=== PATIENT | male | born 1980 | race Caucasian/White ===

== ENCOUNTER 2020-05-31 10:38 | Inpatient (IN) | payer OTHER ==
[2020-05-31] MEDS ORDERED: LORazepam 2 MG/ML INJ IV STA (10:52)
[2020-05-31] MEDS ORDERED: ZIPRASIDONE 20 MG VIAL IM STA (10:52)
--- NOTE | 2020-05-31 11:40 | ED ---
General Adult HPI - General Source: patient, police, EMS, RN notes reviewed, old records reviewed Mode of arrival: EMS Limitations: altered mental status <Jose Bolaños - Last Filed: 05/31/20 14:31> <Wagner Phipps - Last Filed: 05/31/20 16:36> - General Chief complaint: Altered Mental Status Stated complaint: Psychosis Time Seen by Provider: 05/31/20 10:40 - History of Present Illness Initial comments: This a 39-year-old male who is brought in by [facility] and they will be conditioning the patient. Patient was found on the side of the highway yelling into the air he states he got out of his car that was so beautifully started crying and talking to God. Patient was also found waving his shirt around at the side of the highway. When patient comes into the room he stated that he believed someone might be trying to run him off the road and upset him so much she decided to pullman clerk and look at the birds in the ray in the clouds. Patient denies drug use or alcohol use. Patient denies any physical complaints. Patient is looking around the room and identifying different objects in the room incorrectly. (Jose Bolaños) - Related Data Allergies Allergy/AdvReac Type Severity Reaction Status Date / Time No Known Allergies Allergy Verified 05/31/20 15:31 Review of Systems ROS Other: All systems not noted in ROS Statement are negative. <Jose Bolaños - Last Filed: 05/31/20 14:31> ROS Other: All systems not noted in ROS Statement are negative. <Wagner Phipps - Last Filed: 05/31/20 16:36> ROS Statement: Those systems with pertinent positive or pertinent negative responses have been documented in the HPI. Past Medical History Past Psychological History: Unable to Obtain Smoking Status: Current every day smoker Past Alcohol Use History: Unable to Obtain Past Drug Use History: Unable to Obtain <Jose Bolaños - Last Filed: 05/31/20 14:31> General Exam Limitations: altered mental status <Jose Bolaños - Last Filed: 05/31/20 14:31> - General Exam Comments Initial Comments: GENERAL: Patient is well-developed and well-nourished. Patient is nontoxic and well- hydrated and is in no acute distress. ENT: Neck is soft and supple. No significant lymphadenopathy is noted. Oropharynx is clear. Moist mucous membranes. Neck has full range of motion without eliciting any pain. EYES: The sclera were anicteric and conjunctiva were pink and moist. Extraocular movements were intact and pupils were equal round and reactive to light. Eyelids were unremarkable. PULMONARY: Unlabored respirations. Good breath sounds bilaterally. No audible rales rhonchi or wheezing was noted. CARDIOVASCULAR: There is a regular rate and rhythm without any murmurs gallops or rubs. ABDOMEN: Soft and nontender with normal bowel sounds. SKIN: Skin is clear with no lesions or rashes and otherwise unremarkable. NEUROLOGIC: Patient is alert and oriented x3. Cranial nerves II through XII are grossly intact. Motor and sensory are also intact. Normal speech, volume and content. Symmetrical smile. MUSCULOSKELETAL: Normal extremities with adequate strength and full range of motion. No lower extremity swelling or edema. No calf tenderness. LYMPHATICS: No significant lymphadenopathy is noted PSYCHIATRIC: Patient is delusional (Jose Bolaños) Course Vital Signs 05/31/20 05/31/20 05/31/20 11:33 12:33 13:00 Pulse Rate Respiratory 18 18 18 Rate Blood Pressure O2 Sat by Pulse Oximetry 05/31/20 05/31/20 05/31/20 14:00 15:00 16:00 Pulse Rate 82 82 Respiratory 18 18 18 Rate Blood Pressure 127/77 O2 Sat by Pulse 96 Oximetry Procedures - Restraint - Face to Face Restraint Occurrence 1 Patient's Immediate Situation: Endangers others' safety, Endangers staff safety Patient's Reaction to the Intervention: Uncooperative, Belligerent, Combative Patient's Medical & Behavioral Condition: Agitated, Bizarre behavior Need to Continue or Terminate Restraint or Seclusion: Continue Face to Face Eval of Restraint Date: 05/31/20 Face to Face Eval of Restraint Time: 11:20 <Jose Bolaños - Last Filed: 05/31/20 14:31> Medical Decision Making - Lab Data Result diagrams: 05/31/20 11:44 05/31/20 11:44 <Jose Bolaños - Last Filed: 05/31/20 14:31> - Lab Data Result diagrams: 05/31/20 11:44 05/31/20 11:44 <Wagner Phipps - Last Filed: 05/31/20 16:36> - Medical Decision Making Dr. Phipps will be taking over the care of this patient at 3 PM (Wilson rouse,Jose) Patient has been evaluated by EPS and felt to be acutely psychotic NOS will require transfer for psychiatric evaluation. Transfer currently in progress. (Wagner Phipps) - Lab Data Lab Results 05/31/20 05/31/20 05/31/20 Range/Units 11:44 11:44 11:44 WBC 6.4 (3.8-10.6) k/uL RBC 4.54 (4.30-5.90) m/uL Hgb 15.7 (13.0-17.5) gm/dL Hct 44.8 (39.0-53.0) % MCV 98.8 (80.0-100.0) fL MCH 34.5 (25.0-35.0) pg MCHC 34.9 (31.0-37.0) g/dL RDW 12.3 (11.5-15.5) % Plt Count 285 (150-450) k/uL MPV 7.5 Neutrophils % 56 % Lymphocytes % 30 % Monocytes % 9 % Eosinophils % 2 % Basophils % 1 % Neutrophils # 3.6 (1.3-7.7) k/uL Lymphocytes # 1.9 (1.0-4.8) k/uL Monocytes # 0.6 (0-1.0) k/uL Eosinophils # 0.1 (0-0.7) k/uL Basophils # 0.0 (0-0.2) k/uL Sodium 136 L (137-145) mmol/L Potassium 4.1 (3.5-5.1) mmol/L Chloride 104 (98-107) mmol/L Carbon Dioxide 22 (22-30) mmol/L Anion Gap 10 mmol/L BUN 11 (9-20) mg/dL Creatinine 0.84 (0.66-1.25) mg/dL Est GFR (CKD-EPI)AfAm >90 (>60 ml/min/1.73 sqM) Est GFR (CKD-EPI)NonAf >90 (>60 ml/min/1.73 sqM) Glucose 96 (74-99) mg/dL Calcium 9.1 (8.4-10.2) mg/dL Magnesium 2.1 (1.6-2.3) mg/dL Total Bilirubin 0.8 (0.2-1.3) mg/dL AST 31 (17-59) U/L ALT 26 (4-49) U/L Alkaline Phosphatase 85 (38-126) U/L Total Protein 7.6 (6.3-8.2) g/dL Albumin 4.5 (3.5-5.0) g/dL Salicylates <1.0 mg/dL Urine Opiates Screen (NotDetected) Ur Oxycodone Screen (NotDetected) Urine Methadone Screen (NotDetected) Ur Propoxyphene Screen (NotDetected) Acetaminophen <10.0 ug/mL Ur Barbiturates Screen (NotDetected) U Tricyclic Antidepress (NotDetected) Ur Phencyclidine Scrn (NotDetected) Ur Amphetamines Screen (NotDetected) U Methamphetamines Scrn (NotDetected) U Benzodiazepines Scrn (NotDetected) Urine Cocaine Screen (NotDetected) U Marijuana (THC) Screen (NotDetected) Serum Alcohol <10 mg/dL Coronavirus (PCR) Not Detected (Not Detectd) 05/31/20 Range/Units 14:03 WBC (3.8-10.6) k/uL RBC (4.30-5.90) m/uL Hgb (13.0-17.5) gm/dL Hct (39.0-53.0) % MCV (80.0-100.0) fL MCH (25.0-35.0) pg MCHC (31.0-37.0) g/dL RDW (11.5-15.5) % Plt Count (150-450) k/uL MPV Neutrophils % % Lymphocytes % % Monocytes % % Eosinophils % % Basophils % % Neutrophils # (1.3-7.7) k/uL Lymphocytes # (1.0-4.8) k/uL Monocytes # (0-1.0) k/uL Eosinophils # (0-0.7) k/uL Basophils # (0-0.2) k/uL Sodium (137-145) mmol/L Potassium (3.5-5.1) mmol/L Chloride (98-107) mmol/L Carbon Dioxide (22-30) mmol/L Anion Gap mmol/L BUN (9-20) mg/dL Creatinine (0.66-1.25) mg/dL Est GFR (CKD-EPI)AfAm (>60 ml/min/1.73 sqM) Est GFR (CKD-EPI)NonAf (>60 ml/min/1.73 sqM) Glucose (74-99) mg/dL Calcium (8.4-10.2) mg/dL Magnesium (1.6-2.3) mg/dL Total Bilirubin (0.2-1.3) mg/dL AST (17-59) U/L ALT (4-49) U/L Alkaline Phosphatase (38-126) U/L Total Protein (6.3-8.2) g/dL Albumin (3.5-5.0) g/dL Salicylates mg/dL Urine Opiates Screen Not Detected (NotDetected) Ur Oxycodone Screen Not Detected (NotDetected) Urine Methadone Screen Not Detected (NotDetected) Ur Propoxyphene Screen Not Detected (NotDetected) Acetaminophen ug/mL Ur Barbiturates Screen Not Detected (NotDetected) U Tricyclic Antidepress Not Detected (NotDetected) Ur Phencyclidine Scrn Not Detected (NotDetected) Ur Amphetamines Screen Not Detected (NotDetected) U Methamphetamines Scrn Not Detected (NotDetected) U Benzodiazepines Scrn Not Detected (NotDetected) Urine Cocaine Screen Not Detected (NotDetected) U Marijuana (THC) Screen Not Detected (NotDetected) Serum Alcohol mg/dL Coronavirus (PCR) (Not Detectd) Disposition <Jose Bolaños - Last Filed: 05/31/20 14:31> Is patient prescribed a controlled substance at d/c from ED?: No - Out of Hospital Transfer - Req. Specs Out of Hospital Transfer - Requested Specifics: Psychiatric Non-ICU <Wagner Phipps - Last Filed: 05/31/20 16:36> Clinical Impression: Acute psychosis Disposition: OTHER INSTITUTION NOT DEFINED Condition: Stable Referrals: None,Stated [Primary Care Provider] - 1-2 days
[2020-05-31 12:16] LABS: Basophils % (A) 1 %; Eosinophils # (A) 0.1 k/uL (0-0.7); Eosinophils % (A) 2 %; HCT 44.8 % (39.0-53.0); HGB 15.7 gm/dL (13.0-17.5); Lymphocytes # (A) 1.9 k/uL (1.0-4.8); Lymphocytes % (A) 30 %; MCH 34.5 pg (25.0-35.0); MCHC 34.9 g/dL (31.0-37.0); MCV 98.8 fL (80.0-100.0); Mean Platelet Volume 7.5; Monocytes # (A) 0.6 k/uL (0-1.0); Monocytes % (A) 9 %; Neutrophils # (A) 3.6 k/uL (1.3-7.7); Neutrophils % (A) 56 %; Platelet Count 285 k/uL (150-450); RBC 4.54 m/uL (4.30-5.90); RDW 12.3 % (11.5-15.5); WBC 6.4 k/uL (3.8-10.6)
[2020-05-31 12:19] LABS: ALT 26 U/L (4-49); AST 31 U/L (17-59); Acetaminophen <10.0 ug/mL; African American GFR (CKD) >90 (>60 ml/min/1.73 sqM); Albumin 4.5 g/dL (3.5-5.0); Alcohol <10 mg/dL; Alkaline Phosphatase 85 U/L (38-126); Anion Gap 10 mmol/L; Blood Urea Nitrogen 11 mg/dL (9-20); Calcium 9.1 mg/dL (8.4-10.2); Carbon Dioxide 22 mmol/L (22-30); Chloride 104 mmol/L (98-107); Glucose 96 mg/dL (74-99); Magnesium 2.1 mg/dL (1.6-2.3); Non-African American GFR(CKD) >90 (>60 ml/min/1.73 sqM); Potassium 4.1 mmol/L (3.5-5.1); Salicylate <1.0 mg/dL; Sodium 136 mmol/L (137-145); Total Bilirubin 0.8 mg/dL (0.2-1.3); Total Protein 7.6 g/dL (6.3-8.2)
--- NOTE | 2020-05-31 13:59 | CT ---
EXAMINATION TYPE: CT brain wo con DATE OF EXAM: 05/31/2020 COMPARISON: None INDICATION: Altered mental status DLP: 1096.4 mGycm, Automated exposure control for dose reduction was used. CONTRAST: None CT of the brain is performed utilizing 3 mm thick sections through the posterior fossa and 3 mm thick sections through the remaining calvarium. Study is performed within 24 hours of arrival to the hosp ital. No abnormal hyperdensity is present to suggest an acute intracranial hemorrhage. No mass lesion is evident. No acute infarcts are evident. Ventricles and sulci are appropriate for the patient age. There is a retention cyst within the anterior left maxillary sinus. Minimal post thickening posterior ethmoid air cells. Remaining paranasal sinuses are clear. Mastoid air cells are clear. IMPRESSIONS: 1. No acute intracranial process.
[2020-05-31 14:37] LABS: Amphetamine Screen,Urine Not Detected (NotDetected); Barbiturate Screen,Urine Not Detected (NotDetected); Benzodiazepines Screen,Urine Not Detected (NotDetected); Cocaine Screen,Urine Not Detected (NotDetected); Methadone Screen, Urine Not Detected (NotDetected); Opiate Screen,Urine Not Detected (NotDetected); Oxycodone Screen, Urine Not Detected (NotDetected); Phencyclidine Screen,Urine Not Detected (NotDetected); Tricyclic Antidepressant,Urine Not Detected (NotDetected); Urn Cannabinoid Scrn Not Detected (NotDetected)
[2020-05-31] MEDS ORDERED: LORazepam 2 MG/ML INJ IM STA (16:29)
[2020-06-01] MEDS ORDERED: MAGNESIUM HYDROXIDE 2,400 MG/10 ML CUP PO PRN (15:19)
[2020-06-01] MEDS ORDERED: ACETAMINOPHEN TAB 325 MG TAB PO PRN (15:19)
[2020-06-01] MEDS ORDERED: MAG HYDROX/AL HYDROX/SIMETH 30 ML CUP PO PRN (15:19)
[2020-06-01] MEDS ORDERED: LORazepam 1 MG TAB PO PRN (15:19)
[2020-06-01] MEDS ORDERED: LORazepam 2 MG/ML INJ IM PRN (15:22)
[2020-06-01] MEDS ORDERED: HALOPERIDOL LACTATE 5 MG/ML 1 ML VIAL IM PRN (15:23)
[2020-06-01] MEDS ORDERED: haloperidoL 5 MG TAB PO PRN (15:24)
--- NOTE | 2020-06-01 22:42 | P.CONS ---
History of Present Illness - Reason for Consult Consult date: 06/01/20 - History of Present Illness She is a 39-year-old male with no known PMH who was brought into the emergency room under police custody due to erratic behavior. The patient was reportedly outside of his car on the freeway taking his clothes off and acting bizarrely. The patient was noted to be psychotic in the emergency room and was thereby admitted to the mental health unit where he was seen and evaluated. He reported that he wants to go home and that he is "totally fine". He did note that he had gotten out of his car because he was stressed about the high-speed of all the other cars and was looking at the birds and the clouds to help him calm down. He denied any physical complaints. Reported no history of past medical conditions and that he does not take any medications at home. Denied chest pain, shortness of breath or fever, chills, nausea, vomiting, abdominal pain. Reports smoking half pack of cigarettes per day for the past several years. Denied drug use. Review of Systems Pertinent positives and negatives as discussed in HPI, a complete review of systems was performed and all other systems are negative. Past Medical History Past Psychological History: Unable to Obtain Smoking Status: Current every day smoker Past Alcohol Use History: Unable to Obtain Past Drug Use History: Unable to Obtain Medications and Allergies Home Medications Medication Instructions Recorded Confirmed Type Unable To Assess [Unable to Assess] 05/31/20 05/31/20 History Allergies Allergy/AdvReac Type Severity Reaction Status Date / Time No Known Allergies Allergy Verified 05/31/20 15:31 Physical Exam Vitals: Vital Signs Temp Pulse Pulse Resp BP BP Pulse Ox 06/01/20 17:53 96.5 F L 06/01/20 07:58 97.3 F L 73 18 120/73 97 06/01/20 00:51 98.0 F 68 16 117/73 94 L Intake and Output 06/01/20 06/01/20 06/01/20 06:59 14:59 22:59 Other: Weight 97.069 kg General: non toxic, no distress, appears at stated age, overweight Derm: no unusual rashes/lesions no unusual ecchymoses, warm, dry Head: atraumatic, normocephalic, symmetric Eyes: EOMI, no lid lag, anicteric sclera, pupils equal round reactive to light ENT: Nose and ears atraumatic, no thrush, no pharyngeal erythema Neck: No thyromegaly, no cervical lymphadenopathy, trachea midline, supple Mouth: no lip lesion, mucus membranes moist Cardiovascular: S1S2 reg, no murmur, positive posterior tibial pulse bilateral, no edema, capillary refill less than 2 seconds Lungs: CTA bilateral, no rhonchi, no rales , no accessory muscle use Abdominal: soft, nontender to palpation, no guarding, no appreciable organomegaly, normal bowel sounds Ext: no gross muscle atrophy, muscle strength 5 out of 5 in all 4 extremities grossly, no contractures, Neuro: CN II-XI grossly intact, light touch intact all 4 extremities, finger to nose within normal limits, Psych: Alert, oriented, flat of ideas, somewhat disorganized thought process Results CBC & Chem 7: 05/31/20 11:44 05/31/20 11:44 Assessment and Plan Plan: Tobacco abuse -Advised on importance of cessation -Nicotine patch prn Psychosis -As per psychiatry Thank you for allowing us to participate in the care of this patient. We will follow peripherally. Do not hesitate to contact us with questions. Someone can be reached from the [facility] hospitalist group at all hours of the day at [phone].
[2020-06-02 07:55] LABS: Basophils % (A) 0 %; Eosinophils # (A) 0.2 k/uL (0-0.7); Eosinophils % (A) 3 %; HCT 44.9 % (39.0-53.0); HGB 15.6 gm/dL (13.0-17.5); Lymphocytes # (A) 1.7 k/uL (1.0-4.8); Lymphocytes % (A) 31 %; MCH 34.6 pg (25.0-35.0); MCHC 34.7 g/dL (31.0-37.0); MCV 99.8 fL (80.0-100.0); Mean Platelet Volume 7.2; Monocytes # (A) 0.5 k/uL (0-1.0); Monocytes % (A) 8 %; Neutrophils % (A) 55 %; Platelet Count 272 k/uL (150-450); RDW 12.2 % (11.5-15.5); WBC 5.5 k/uL (3.8-10.6)
[2020-06-02 08:14] LABS: ALT 27 U/L (4-49); AST 31 U/L (17-59); African American GFR (CKD) >90 (>60 ml/min/1.73 sqM); Albumin 4.1 g/dL (3.5-5.0); Alkaline Phosphatase 70 U/L (38-126); Anion Gap 5 mmol/L; Blood Urea Nitrogen 10 mg/dL (9-20); Calcium 8.9 mg/dL (8.4-10.2); Carbon Dioxide 29 mmol/L (22-30); Chloride 104 mmol/L (98-107); Cholesterol 128 mg/dL (<200); Glucose 89 mg/dL (74-99); HDL Cholesterol 23 mg/dL (40-60); LDL Cholesterol,Calculated 92 mg/dL (0-99); Non-African American GFR(CKD) >90 (>60 ml/min/1.73 sqM); Potassium 4.5 mmol/L (3.5-5.1); Sodium 138 mmol/L (137-145); Total Bilirubin 0.8 mg/dL (0.2-1.3); Total Protein 6.9 g/dL (6.3-8.2); Triglycerides 67 mg/dL (<150)
--- NOTE | 2020-06-02 11:02 | P.HP ---
Psychiatric H&P - . H&P Date: 06/02/20 History & Physical: IDENTIFYING DATA: The patient is a 34-year-old male brought to the Medical Center by emergency services. A state border police completed a Petition that read "standing on freeway without shirt yelling at car. He is suspicious of cable wires and cable carriers. He was yelling at flagpole at rest stop. Suppression spirits and ceiling. The birds are medicine service for stupid people. They're trying to duran my brain." HISTORY OF PRESENT ILLNESS: I reviewed the medical record and interviewed the patient. He was guarded and suspicious and provided little information. He perseverated on needed to be released. He complained that he has a court hearing on Wednesday at 8:30 AM and he plans to go to the [employer] to buy a new suit. He was guarded about the court hearing and only explain that it was due to and unfounded accusation by his . He suggested I speak with his disability attorney to obtain more information. In the ED he told the physician that he thought that someone was trying to run him off the road so he pulled off the highway and was looking at "birds in the ray in the clouds" when the state game warden arrived. The emergency physician noted that he was "looking around the room and identifying different objects in the room incorrectly.". The EPS nurse reports that he was verbally aggressive and physically aggressive. He thought everyone in the hospital were fake. 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 He had a comprehensive medical evaluation including a computed tomography scan. His urine drug screen was negative. His blood alcohol level was negative. Computed tomography scan of the brain showed no acute cranial process. He alleged that the state game warden who found him on misinterpreted the situation. He alleged that he had pulled off the side of the expressway because he became anxious in traffic. He had stepped off a safe distance from the highway and was regaining his composure. The state game warden would not listen to his explanation, called emergency services and brought him to the Medical Center "in handcuffs." He denied that he has problems or concerns. He perseverated on not being a threat to himself or others and being able to take care of himself. Much of this conversation was difficult to follow because he was overly circumstantial and pressured. He talked about living at an organization called "[employer]" where person called Camille Nuñez takes care of him. 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 He agreed to allow me to speak with his family and gave telephone numbers for his mother, Ashley Red ([phone]), and his stepfather Deshawn Red ([phone]). Number for his father was not correct and there is no answer to his mother's phone. I also left a message at the main number for her [employer] ([phone]) to speak with Camille Nuñez. He denied experiencing symptoms of a mental illness including persistent depression or anxiety. He denied experiencing auditory, visual or olfactory hallucinations, ideas reference, thought insertion, thought broadcasting or thought control. He denied experiencing periods of elevated mood or sustained irritability suggestive of amanda or hypomania. He denied use of drugs and described a social use of alcohol. PAST PSYCHIATRIC HISTORY: He was guarded about his psychiatric history. Eventually, he acknowledge that he been admitted to a psychiatric hospital in [place] and [facility]. He alleged the admissions were similarly the result of a misunderstanding. He met with a therapist in the past but was vague about when and for what reason. He admitted to taking psychotropic medications but did so on to appease the physician. PAST MEDICAL HISTORY: He denied a history of major medical problems. ALLERGIES: Known drug ALLERGIES SUBSTANCE USE HISTORY: He denied history of drug or alcohol use problems. FAMILY PSYCHIATRIC/SUBSTANCE USE HISTORY: He is unaware of family history of mental health or substance use problems. LEGAL HISTORY: He was guarded about his medical history but, as noted above, he insisted on being discharged so he could keep a court appointment on 06/03/2020 at 8:30 AM. SOCIAL HISTORY: He provides a disjointed social history. Apparently he was born in [place] and moved to [place] when he was a proximal be 8 years old. He talked about his mother having become involved in a serious motor vehicle accident in [place] where she was hospitalized for an extended period. He lived in [place] where he became involved with teen challenge. He has 1 brother. He graduated from high school and boasted about his academics success. He alleged that he started a [employer] while he was in high school. He's been twice. He has one children from his first marriage. His first is . He from his second . They have 3 children. He reported that he has custody of his oldest son and his and his 3 children are with their mother. He is currently living at [facility] MENTAL STATUS EXAM: He presented as a tall carefully groomed. 31-year-old male who was pleasant on approach. He made eye contact and appeared to attend to the interview. He had no distinguishing features or prominent physical abnormalities. He is an anxious facial expression. He is alert and oriented to person, place and time. He showed no abnormality of psychomotor activity he was not agitated, restless, impulsive or tremulous. His speech was spontaneous with increased rate and rhythm. He demonstrated pressured speech. He had no articulation difficulties. His affect was guarded and suspicious. He denied suicidal ideation, wishes homicidal ideation. He denied feeling hopeless, helpless or worthless. He obsessed over this hospitalization and the circumstances that this hospitalization and he ruminated about the need for discharge to keep his court appointment. He did not express clear ideas reference, paranoid ideation or delusions. His thinking was concrete and he demonstrated flight of ideas. He denied hallucinations did not appear to be responding to internal stimuli. Global impression of intellect is average. He has no insight or understanding of his illness or need for treatment. STRENGTHS: Stable housing, stable employment, social supports WEAKNESSES: Legal problems, recent separation, mental illness IMPRESSION: Is 39-year-old male brought by the state police to the [facility]. The state game warden completed a Petition describing bizarre and psychotic behavior. He provided a disjointed history the circumstances of what this hospitalization. He was guarded about his past history. He was markedly circumstantial and demonstrated pressured speech. He should be treated inpatient basis with combination of psychopharmacology and multimodal therapy. PRINCIPLE DIAGNOSIS: Unspecified mood disorder. Rule out bipolar disorder most recent episode manic, rule out schizoaffective disorder RECOMMENDATION: Admitted to the psychiatric unit. Safety precautions. Co mpleted the second clinical certificate and proceeded with involuntary hospitalization. Consult medicine for initial physical exam and medical history. buffing line set up worker completed initial psychosocial assessment coordinate discharge and aftercare. Obtain clinical information from friends or family. Haldol and/or Ativan when necessary for agitation or aggression. Discuss treatment with a mood stabilizer such as Depakote, second-generation antipsychotic or lithium. Encourage participation in therapeutic groups and activities. Evaluate clinical status response to treatment daily basis. Allergies Allergy/AdvReac Type Severity Reaction Status Date / Time No Known Allergies Allergy Verified 05/31/20 15:31 Vital Signs Temp 97.7 F 06/02/20 06:50 Pulse 102 H 06/02/20 06:50 Resp 16 06/02/20 06:50 BP 99/79 06/02/20 06:50 Pulse Ox 97 06/01/20 07:58 Intake & Output 06/01/20 06/02/20 06/02/20 18:59 06:59 18:59 Weight 97.069 kg Laboratory Last Values WBC 5.5 k/uL (3.8-10.6) 06/02/20 07:36 RBC 4.50 m/uL (4.30-5.90) 06/02/20 07:36 Hgb 15.6 gm/dL (13.0-17.5) 06/02/20 07:36 Hct 44.9 % (39.0-53.0) 06/02/20 07:36 MCV 99.8 fL (80.0-100.0) 06/02/20 07:36 MCH 34.6 pg (25.0-35.0) 06/02/20 07:36 MCHC 34.7 g/dL (31.0-37.0) 06/02/20 07:36 RDW 12.2 % (11.5-15.5) 06/02/20 07:36 Plt Count 272 k/uL (150-450) 06/02/20 07:36 MPV 7.2 06/02/20 07:36 Neutrophils % 55 % 06/02/20 07:36 Lymphocytes % 31 % 06/02/20 07:36 Monocytes % 8 % 06/02/20 07:36 Eosinophils % 3 % 06/02/20 07:36 Basophils % 0 % 06/02/20 07:36 Neutrophils # 3.0 k/uL (1.3-7.7) 06/02/20 07:36 Lymphocytes # 1.7 k/uL (1.0-4.8) 06/02/20 07:36 Monocytes # 0.5 k/uL (0-1.0) 06/02/20 07:36 Eosinophils # 0.2 k/uL (0-0.7) 06/02/20 07:36 Basophils # 0.0 k/uL (0-0.2) 06/02/20 07:36 Sodium 138 mmol/L (137-145) 06/02/20 07:36 Potassium 4.5 mmol/L (3.5-5.1) 06/02/20 07:36 Chloride 104 mmol/L (98-107) 06/02/20 07:36 Carbon Dioxide 29 mmol/L (22-30) 06/02/20 07:36 Anion Gap 5 mmol/L 06/02/20 07:36 BUN 10 mg/dL (9-20) 06/02/20 07:36 Creatinine 0.72 mg/dL (0.66-1.25) 06/02/20 07:36 Est GFR (CKD-EPI)AfAm >90 (>60 ml/min/1.73 sqM) 06/02/20 07:36 Est GFR (CKD-EPI)NonAf >90 (>60 ml/min/1.73 sqM) 06/02/20 07:36 Glucose 89 mg/dL (74-99) 06/02/20 07:36 Calcium 8.9 mg/dL (8.4-10.2) 06/02/20 07:36 Magnesium 2.1 mg/dL (1.6-2.3) 05/31/20 11:44 Total Bilirubin 0.8 mg/dL (0.2-1.3) 06/02/20 07:36 AST 31 U/L (17-59) 06/02/20 07:36 ALT 27 U/L (4-49) 06/02/20 07:36 Alkaline Phosphatase 70 U/L (38-126) 06/02/20 07:36 Total Protein 6.9 g/dL (6.3-8.2) 06/02/20 07:36 Albumin 4.1 g/dL (3.5-5.0) 06/02/20 07:36 Triglycerides 67 mg/dL (<150) 06/02/20 07:36 Cholesterol 128 mg/dL (<200) 06/02/20 07:36 LDL Cholesterol, Calc 92 mg/dL (0-99) 06/02/20 07:36 HDL Cholesterol 23 mg/dL (40-60) L 06/02/20 07:36 TSH 1.080 mIU/L (0.465-4.680) 06/02/20 07:36 Salicylates <1.0 mg/dL 05/31/20 11:44 Urine Opiates Screen Not Detected (NotDetected) 05/31/20 14:03 Ur Oxycodone Screen Not Detected (NotDetected) 05/31/20 14:03 Urine Methadone Screen Not Detected (NotDetected) 05/31/20 14:03 Ur Propoxyphene Screen Not Detected (NotDetected) 05/31/20 14:03 Acetaminophen <10.0 ug/mL 05/31/20 11:44 Ur Barbiturates Screen Not Detected (NotDetected) 05/31/20 14:03 U Tricyclic Antidepress Not Detected (NotDetected) 05/31/20 14:03 Ur Phencyclidine Scrn Not Detected (NotDetected) 05/31/20 14:03 Ur Amphetamines Screen Not Detected (NotDetected) 05/31/20 14:03 U Methamphetamines Scrn Not Detected (NotDetected) 05/31/20 14:03 U Benzodiazepines Scrn Not Detected (NotDetected) 05/31/20 14:03 Urine Cocaine Screen Not Detected (NotDetected) 05/31/20 14:03 U Marijuana (THC) Screen Not Detected (NotDetected) 05/31/20 14:03 Serum Alcohol <10 mg/dL 05/31/20 11:44 Coronavirus (PCR) Not Detected (Not Detectd) 05/31/20 11:44 06/02/20 09:16 06/02/20 10:54
[2020-06-02 15:48] LABS: Hemoglobin A1C 5.7 % (4.0-6.0)
--- NOTE | 2020-06-03 14:04 | P.PN ---
Progress Note - Text Progress Note Date: 06/03/20 Clinical Problems: bipolar disorder most recent episode manic, rule out schizoaffective disorder Interim history: I reviewed the medical record and interviewed the patient. I was unsuccessful in reaching his mother, stepfather our director of the [employer]. He met with his contracts attorney and deferred the probate hearing. He remains distressed over the circumstances that brought him to the hospital. He maintained that he is in full control of his thoughts of emotion and is not a harm to himself or anyone else. He believes that the state police misinterpreted his behavior and he was mistreated by EMS personnel and staff in the emergency room. He is particularly angry that he was restrained when he was in the emergency room. He complained about having been labeled as bipolar. We discussed treatment options he agreed to start a "mood stabilizer" but made his opinion known that he considers our medications as "poison". Medical consult appreciated Mental status exam: He presented as a casually groomed 39-year-old male who was pleasant on approach. He made eye contact and attended to the interview. He had a distressed facial expression. He showed no abnormality of psychomotor activity. His speech was spontaneous with Increased rate, rhythm and volume. He continued to demonstrate pressured speech. His affect was irritable but control. He denied suicidal ideation or wishes. He denied homicidal ideation. He denied feeling hopeless, helpless or worthless. He ruminated about the circumstances that this hospitalization. No express ideas reference, paranoid ideation or delusions. His thinking was concrete but his associations were coherent, logical and goal directed. He referred to himself as highly talented and highly intelligent but did not express clear paranoid or grandiose delusional beliefs. Assessment: He continues to show signs and symptoms of hypomania and would benefit from treatment with a mood stabilizer. Plan: Continue inpatient treatment. Safety precautions. Begin Abilify 1 mg daily and titrated according" response and tolerance. 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 Encourage participation in therapeutic groups and activities. Evaluate clinical status response to treatment daily basis.
[2020-06-04] MEDS ORDERED: ARIPiprazole 2 MG TAB PO SCH (09:00)
--- NOTE | 2020-06-04 10:31 | P.PN ---
Progress Note - Text Progress Note Date: 06/04/20 Interval History: Patient was seen in his room and was directable and agreeable to speak with specifications writer in his room. The patient continues to endorse significant manic symptoms. During this interview, he constantly ranted about how he has been working on projects alongside Gage Myers, Adriano Quevedo, and has projects with [employer] he is working on. Furthermore when providing the events leading to this hospitalization he does endorse some mandaen preoccupation stating he was [place] the [place]. He lacks any insight into his condition believing he was only diagnosed with "temporary bipolar disorder" in the distant past. He remains adamant that he needs to be discharged as he has multiple works projects he needs to return to. He disagrees with this psychiatrist's assessment of amanda believing he is being persecuted and lied to. He agrees he will take some medication if it will facilitate discharge but states he believes medications are not necessary as he believes he is not mentally ill. Mental Status Exam: General Appearance: Patient appears to be stated age is alert, at times directable, and intermittently cooperative. Fair hygiene and grooming. Of normal build. Behavior: Patient is calmly seated without any agitated behavior. Elevated psychomotor activity. Patient is constantly pacing. Intense eye contact. Speech: Patient's speech is pressured, spontaneous, with normal volume and tone. Mood/Affect: Mood is "Ready to go." Affect is labile, irritable, intense, and expansive. Suicidality/Homicidality: Patient denies having any suicidal or homicidal ideation intent or plan. Perceptions: Patient denies any visual hallucinations and denies any auditory hallucinations Though content/process: Grandiose delusions and mandaen preoccupation. Flight of ideas. Circumstantial. Memory and concentration: AOX3, grossly intact for the purposes of this session Judgment and insight: Very Poor Assessment Bipolar Disorder, Type 1, manic episode Plan: -Patient continues to meet criteria for inpatient psychiatric admission for symptom stabilization and safety. -Medications: Start [place] 300 mg twice daily for mood stabilization Start Risperdal 1 mg by mouth twice a day for mood stabilization -Should patient begin to refuse medications, we will need to file a demand for mental health court. -When necessary Ativan and Haldol for agitation/aggression. -SW on board for discharge planning. Encouraged the patient to participate in milieu.
[2020-06-04] MEDS: risperiDONE 1 MG TAB PO SCH (21:32)
[2020-06-04] MEDS: LITHIUM CARBONATE 300 MG CAP PO SCH (21:33)
[2020-06-05] MEDS: LITHIUM CARBONATE 300 MG CAP PO SCH (08:58)
[2020-06-05] MEDS: risperiDONE 1 MG TAB PO SCH (08:58)
--- NOTE | 2020-06-05 10:25 | P.PN ---
Progress Note - Text Progress Note Date: 06/05/20 Interval History: Patient was seen in his room and was directable and agreeable to speak with freelance writer in his room. The patient reports that he will do what he needs to do in order to be discharge. He has been in adherent with his medications. He remains primarily isolative to himself in his room. He is not reporting any racing thoughts, mood swings, increased goal-directed activity, or difficulty sleeping. The patient reports that he is able to sleep more than 6 hours last night. Question the validity of the statements of the events leading up to his hospitalization. He is not reporting any suicidal or homicidal ideation, intention, and/or plan. He is not reporting any auditory or visualizations. He is denying any paranoia or other delusions. He is not reporting any buddhist preoccupation today. He continues to be somewhat grandiose and pressured in his speech but this has also improved. Mental Status Exam: General Appearance: Patient appears to be stated age is alert, at times directable, and intermittently cooperative. Fair hygiene and grooming. Of normal build. Behavior: Patient is calmly seated without any agitated behavior. Psychomotor activity appears more normal today. Speech: Patient's speech is pressured, spontaneous, with normal volume and tone. Mood/Affect: Mood is "feeling okay." Affect is expansive but otherwise euthymic. Suicidality/Homicidality: Patient denies having any suicidal or homicidal ideation intent or plan. Perceptions: Patient denies any visual hallucinations and denies any auditory hallucinations Though content/process: Grandiose delusions and buddhist preoccupation. Flight of ideas. Circumstantial. Memory and concentration: AOX3, grossly intact for the purposes of this session Judgment and insight: Mildly improving Assessment Bipolar Disorder, Type 1, manic episode Plan: -Patient continues to meet criteria for inpatient psychiatric admission for symptom stabilization and safety. -Medications: Increase lithium to 450 mg by mouth twice a day for mood stabilization Increase Risperdal to 2 mg by mouth twice a day for mood stabilization/psychosis -Should patient begin to refuse medications, we will need to file a demand for mental health court. -When necessary Ativan and Haldol for agitation/aggression. -SW on board for discharge planning. Encouraged the patient to participate in milieu.
[2020-06-05] MEDS: LITHIUM CARBONATE 150 MG CAP PO SCH (22:03)
[2020-06-05] MEDS: risperiDONE 2 MG TAB PO SCH (22:03)
[2020-06-06 07:15] VITALS: RESP 16
[2020-06-06] MEDS: risperiDONE 2 MG TAB PO SCH (08:36)
[2020-06-06] MEDS: LITHIUM CARBONATE 150 MG CAP PO SCH ×2 (08:36→21:21)
--- NOTE | 2020-06-06 11:18 | P.PN ---
Progress Note - Text Progress Note Date: 06/06/20 Interval History: Patient was seen attending group and was directable and agreeable to speak with typewriter assembler in the office. The patient reports that he is feeling significant better and more focused today. He does report some sedation from the medication but states overall he is tolerating the medications well. He is currently not reporting any suicidal or homicidal ideation, intention, and/or plan. He is less forthcoming with any grandiose delusions or paranoid delusions. He reports no cheondoism preoccupation today. He has been able to participate in group and individual therapy appropriately. He is not reporting any auditory or visual hallucinations. The patient is inquiring where his vehicle is. He is provided with the number for [facility] police. Mental Status Exam: General Appearance: Patient appears to be stated age is alert, at times directable, and intermittently cooperative. Fair hygiene and grooming. Of normal build. Behavior: Patient is calmly seated without any agitated behavior. Normal psychomotor activity. Speech: Patient's speech is pressured, spontaneous, with normal volume and tone. Mood/Affect: Mood is "feeling okay." Affect is expansive and euthymic to bright. Suicidality/Homicidality: Patient denies having any suicidal or homicidal ideation intent or plan. Perceptions: Patient denies any visual hallucinations and denies any auditory hallucinations Though content/process: No delusional thought content is endorse today. Thought process appears to be linear and logical in short conversation. Memory and concentration: AOX3, grossly intact for the purposes of this session Judgment and insight: Mildly improving Assessment Bipolar Disorder, Type 1, manic episode Plan: -Patient continues to meet criteria for inpatient psychiatric admission for symptom stabilization and safety. Anticipate discharge for tomorrow. -Medications: Continue lithium 450 mg by mouth twice a day for mood stabilization. Will check lithium level tomorrow. Decrease Risperdal to 1 mg by mouth in the morning and 2 mg by mouth at bedtime for mood stabilization/psychosis. -Should patient begin to refuse medications, we will need to file a demand for mental health court. -When necessary Ativan and Haldol for agitation/aggression. -SW on board for discharge planning. Encouraged the patient to participate in milieu.
[2020-06-06] MEDS ORDERED: risperiDONE 2 MG TAB PO SCH (21:00)
[2020-06-07 01:03] VITALS: BP 122/73; PULSE 80; TEMP 90.3
[2020-06-07] MEDS ORDERED: risperiDONE 1 MG TAB PO SCH (09:00)
[2020-06-07] MEDS: LITHIUM CARBONATE 150 MG CAP PO SCH (09:02)
--- NOTE | 2020-06-07 11:08 | P.DS ---
Providers Date of admission: 06/01/20 15:16 Expected date of discharge: 06/07/20 Attending physician: Justin Barrios MD Consults: 06/01/20 15:19 Consult Physician Routine Consulting Provider: Joseph Physician Consult Reason/Comments: medical management Do you want consulting provider notified?: Yes Primary care physician: Stated None - Discharge Diagnosis(es) (1) Bipolar 1 disorder with moderate amanda Current Visit: Yes Status: Acute Priority: High Hospital Course: Admission HPI: Initial psychiatric evaluation was completed by Dr. Barrios on several 06/02/20 who wrote: "The patient is a 34-year-old male brought [facility] the [facility] by emergency services. A state surveillance dual rate officer completed a Petition that read "standing on freeway without shirt yelling at car. He is suspicious of cable wires and cable carriers. He was yelling at flagpole at rest stop. Suppression spirits and ceiling. The birds are medicine service for stupid people. They're trying to duran my brain." HISTORY OF PRESENT ILLNESS: I reviewed the medical record and interviewed the patient. He was guarded and suspicious and provided little information. He perseverated on needed to be released. He complained that he has a court hearing on Wednesday at 8:30 AM and he plans to go to the [employer] to buy a new suit. He was guarded about the court hearing and only explain that it was due to and unfounded accusation by his . He suggested I speak with his deputy attorney general to obtain more information. In the ED he told the physician that he thought that someone was trying to run him off the road so he pulled off the highway and was looking at "birds in the ray in the clouds" when the real estate management specialist arrived. The emergency physician noted that he was "looking around the room and identifying different objects in the room incorrectly.". The EPS nurse reports that he was verbally aggressive and physically aggressive. He thought everyone in the hospital were fake. He repeatedly tried to call his father and the ORDER SCHEDULE CLERK of his company. He had a comprehensive medical evaluation including a computed tomography scan. His urine drug screen was negative. His blood alcohol level was negative. Computed tomography scan of the brain showed no acute cranial process. He alleged that the real estate management specialist who found him on misinterpreted the situation. He alleged that he had pulled off the side of the expressway because he became anxious in traffic. He had stepped off a safe distance from the highway and was regaining his composure. The real estate management specialist would not listen to his explanation, called emergency services and brought him to the Medical Center "in handcuffs." He denied that he has problems or concerns. He perseverated on not being a threat to himself or others and being able to take care of himself. Much of this conversation was difficult to follow because he was overly circumstantial and pressured. He talked about living at an organization called "[employer]" where person called Camille Nuñez takes care of him. 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 He agreed to allow me to speak with his family and gave telephone numbers for his mother, Ashley Red ([phone]), and his stepfather Deshawn Red ([phone]). Number for his father was not correct and there is no answer to his mother's phone. I also left a message at the main number for her [employer] ([phone]) to speak with Camille Nuñez. He denied experiencing symptoms of a mental illness including persistent depression or anxiety. He denied experiencing auditory, visual or olfactory hallucinations, ideas reference, thought insertion, thought broadcasting or thought control. He denied experiencing periods of elevated mood or sustained irritability suggestive of amanda or hypomania. He denied use of drugs and described a social use of alcohol." Hospital course: Upon admission to the unit patient was initially presented with significant symptoms of amanda, grandiosity, and pressured speech. He was initially hesitant to start treatment but was eventually agreeable to starting lithium and Risperdal. These medications were gradually titrated to their final doses of 1 mg of Risperdal in the morning and 2 mg at bedtime. [place] was titrated to 450 mg by mouth twice a day.Patient got along well with other patients on the unit and followed unit protocol. Patient was compliant with the medications and denied any side effects throughout hospital course. Patient spoke of his stressors and engaged in therapy both group and individual. Patient was also seen by medical team for history and physical exam. Throughout the course of the hospitalization patient gradually improved with regards to mood stabilization, sleep and became future oriented with improved insight and judgment. On day of discharge, patient is not reporting any suicidal or homicidal ideation, intention, and/or plan. He is not endorsing any auditory or visual hallucinations. He is denying any paranoia or other delusions. He reports no access to firearms or other weapons. He has been adherent with his medications and reports no significant side effects. The patient does not have a significant history of substance abuse however was counseled on abstaining from all substances including alcohol and marijuana. Patient was counseled at great length on the need for adherence with his medications and importance of outpatient follow-up. Prior to discharge, family meeting will be arranged by social worker delinquency prevention to answer any questions and ensure safety. Mental status exam: General Appearance: Patient appears to be stated age is alert, pleasant, and cooperative. Patient is in no acute distress and has fair hygiene and grooming. Behavior: Patient is calmly seated without any agitated behavior. Psychomotor activity appears normal. Speech: Patient's speech is fluent and nonpressured. Mood/Affect: Patient reports their mood is "much better", affect is congruent and euthymic to bright. Suicidality/Homicidality: Patient denies having any suicidal or homicidal ideation intent or plan. Perceptions: Patient denies any auditory or visual hallucinations. Though content/process: There is no evidence of any delusional thought content and thought process is linear and goal-directed. Patient is future oriented. Memory and concentration: AOX3, grossly intact for the purposes of this session. Can spell "WORLD" backwards correctly. Judgment and insight: Improved Impression: Bipolar disorder, type I, manic episode Plan: -Continue with discharge today as patient has improved and stabilized psychiatrically and is not currently an imminent threat to himself and/or others. -Continue medications: Risperdal 1 mg by mouth every morning, 2 mg by mouth daily at bedtime for mood stabilization/psychosis [place] 450 mg by mouth twice a day for mood stabilization. [place] level 0.4 prior to discharge. -Patient was counseled on the need for medication compliance and appropriate follow-up at mental health and also primary care for medical issues. Patient verbalized understanding and agreed. -Social work to arrange for and conduct family meeting to ensure safety upon discharge and answer any questions/concerns. Social work also to arrange for patients follow up appointments with [facility] for psychiatric care along with follow up with primary care provider. -Patient counseled on abstaining from recreational drugs and marijuana and alcohol. Was informed/educated on the adverse effects on their physical and mental health. Patient verbally agreed and understood. -Patient was instructed to return to the hospital or seek immediate medical care if their psychiatric or medical symptoms do worsen or reoccur. -Psychoeducation and supportive therapy provided to patient. Risks and benefits of pharmacological treatment versus the risks and benefits of nontreatment weight and discussed. Informed consent discussion held. Common side effects of psychotropics discussed such as, but not limited to headache, GI disturbance, sexual dysfunction, movement disorders, sedation, and orthostatic hypotension. Life threatening and blackbox warnings of prescribed medications also discussed. Potential risks of operating a vehicle or heavy machinery discussed with patient at length. Advised on importance of compliance and a reliable and responsible manner. Patient advised to review FDA consumer labeling of all medications prior to taking. Patient verbalized understanding of potential risks, and agrees with current treatment plan. Patient advised to medically contact physician/emergency personnel if any acute changes in condition occur. Vital Signs Temp 90.3 F L 06/07/20 01:02 Pulse 80 06/07/20 01:02 Resp 16 06/07/20 01:02 BP 122/73 06/07/20 01:02 Pulse Ox 95 06/04/20 04:28 Laboratory Results WBC 5.5 k/uL (3.8-10.6) 06/02/20 07:36 RBC 4.50 m/uL (4.30-5.90) 06/02/20 07:36 Hgb 15.6 gm/dL (13.0-17.5) 06/02/20 07:36 Hct 44.9 % (39.0-53.0) 06/02/20 07:36 MCV 99.8 fL (80.0-100.0) 06/02/20 07:36 MCH 34.6 pg (25.0-35.0) 06/02/20 07:36 MCHC 34.7 g/dL (31.0-37.0) 06/02/20 07:36 RDW 12.2 % (11.5-15.5) 06/02/20 07:36 Plt Count 272 k/uL (150-450) 06/02/20 07:36 MPV 7.2 06/02/20 07:36 Neutrophils % 55 % 06/02/20 07:36 Lymphocytes % 31 % 06/02/20 07:36 Monocytes % 8 % 06/02/20 07:36 Eosinophils % 3 % 06/02/20 07:36 Basophils % 0 % 06/02/20 07:36 Neutrophils # 3.0 k/uL (1.3-7.7) 06/02/20 07:36 Lymphocytes # 1.7 k/uL (1.0-4.8) 06/02/20 07:36 Monocytes # 0.5 k/uL (0-1.0) 06/02/20 07:36 Eosinophils # 0.2 k/uL (0-0.7) 06/02/20 07:36 Basophils # 0.0 k/uL (0-0.2) 06/02/20 07:36 Sodium 138 mmol/L (137-145) 06/02/20 07:36 Potassium 4.5 mmol/L (3.5-5.1) 06/02/20 07:36 Chloride 104 mmol/L (98-107) 06/02/20 07:36 Carbon Dioxide 29 mmol/L (22-30) 06/02/20 07:36 Anion Gap 5 mmol/L 06/02/20 07:36 BUN 10 mg/dL (9-20) 06/02/20 07:36 Creatinine 0.72 mg/dL (0.66-1.25) 06/02/20 07:36 Est GFR (CKD-EPI)AfAm >90 (>60 ml/min/1.73 sqM) 06/02/20 07:36 Est GFR (CKD-EPI)NonAf >90 (>60 ml/min/1.73 sqM) 06/02/20 07:36 Glucose 89 mg/dL (74-99) 06/02/20 07:[address] Glu mg/dL 117 06/02/20 07:36 Hemoglobin A1c 5.7 % (4.0-6.0) 06/02/20 07:36 Calcium 8.9 mg/dL (8.4-10.2) 06/02/20 07:36 Magnesium 2.1 mg/dL (1.6-2.3) 05/31/20 11:44 Total Bilirubin 0.8 mg/dL (0.2-1.3) 06/02/20 07:36 AST 31 U/L (17-59) 06/02/20 07:36 ALT 27 U/L (4-49) 06/02/20 07:36 Alkaline Phosphatase 70 U/L (38-126) 06/02/20 07:36 Total Protein 6.9 g/dL (6.3-8.2) 06/02/20 07:36 Albumin 4.1 g/dL (3.5-5.0) 06/02/20 07:36 Triglycerides 67 mg/dL (<150) 06/02/20 07:36 Cholesterol 128 mg/dL (<200) 06/02/20 07:36 LDL Cholesterol, Calc 92 mg/dL (0-99) 06/02/20 07:36 HDL Cholesterol 23 mg/dL (40-60) L 06/02/20 07:36 TSH 1.080 mIU/L (0.465-4.680) 06/02/20 07:36 Salicylates <1.0 mg/dL 05/31/20 11:44 Urine Opiates Screen Not Detected (NotDetected) 05/31/20 14:03 Ur Oxycodone Screen Not Detected (NotDetected) 05/31/20 14:03 Urine Methadone Screen Not Detected (NotDetected) 05/31/20 14:03 Ur Propoxyphene Screen Not Detected (NotDetected) 05/31/20 14:03 Acetaminophen <10.0 ug/mL 05/31/20 11:44 Ur Barbiturates Screen Not Detected (NotDetected) 05/31/20 14:03 U Tricyclic Antidepress Not Detected (NotDetected) 05/31/20 14:03 Ur Phencyclidine Scrn Not Detected (NotDetected) 05/31/20 14:03 Ur Amphetamines Screen Not Detected (NotDetected) 05/31/20 14:03 U Methamphetamines Scrn Not Detected (NotDetected) 05/31/20 14:03 U Benzodiazepines Scrn Not Detected (NotDetected) 05/31/20 14:03 [place] 0.4 mmol/L 06/07/20 06:58 Urine Cocaine Screen Not Detected (NotDetected) 05/31/20 14:03 U Marijuana (THC) Screen Not Detected (NotDetected) 05/31/20 14:03 Serum Alcohol <10 mg/dL 05/31/20 11:44 Coronavirus (PCR) Not Detected (Not Detectd) 05/31/20 11:44 Allergies Allergy/AdvReac Type Severity Reaction Status Date / Time No Known Allergies Allergy Verified 05/31/20 15:31 Patient Condition at Discharge: Stable Plan - Discharge Summary Discharge Rx Participant: No New Discharge Prescriptions: New risperiDONE [RisperDAL] 2 mg PO HS 30 Days tab [place] Carbonate 450 mg PO BID 30 Days cap risperiDONE [RisperDAL] 1 mg PO DAILY 30 Days tab Discharge Medication List [place] Carbonate 450 mg PO BID 30 Days cap 06/07/20 [Rx] risperiDONE [RisperDAL] 1 mg PO DAILY 30 Days tab 06/07/20 [Rx] risperiDONE [RisperDAL] 2 mg PO HS 30 Days tab 06/07/20 [Rx] Follow up Appointment(s)/Referral(s): [facility] [[facility] - 1 Week Patient Instructions/Handouts: Brief Psychotic Disorder (DC) Activity/Diet/Wound Care/Special Instructions: Activity and diet as tolerated. Avoid the use of street drugs and alcohol. Take all medications as prescribed. When you are in need of refills on your medications please contact your medical provider and/or outpatient psychiatrist to have this done. Please go to scheduled outpatient appointment for aftercare treatment. If symptoms return or become worse, call the crisis line at and/or go to the nearest emergency room for evaluation. Discharge Disposition: HOME SELF-CARE
== END 2020-06-07 02:00 | disposition home or self-care (01) | DRG 885 ==
LOC: EC 10:38 → 3MHU 06-01 15:16
PROVIDERS: ADMIT Psychiatry & Neurology Psychiatry; ATTEND Psychiatry & Neurology Psychiatry
DX: F31.9 Bipolar disorder, unspecified (principal); F23 Brief psychotic disorder; F17.210 Nicotine dependence, cigarettes, uncomplicated; Z79.899 Other long term (current) drug therapy; Z20.822 Contact with and (suspected) exposure to COVID-19
CPT/HCPCS: 36415; 70450; 80053; 80061; 80143; 80178; 80179; 80306; 80320; 83036; 83735; 84443; 85025; 87635; 96372; 96374; 99285